=== PATIENT | female | born 2000 ===

== ENCOUNTER 2022-03-28 06:48 | Inpatient (IN) ==
[2022-03-28] MEDS ORDERED: CARBOPROST TROMETHAMINE 250 MCG/ML AMP IM PRN (07:38)
[2022-03-28] MEDS ORDERED: OXYTOCIN/LR 20 UNIT/1,000 ML BAG IV ONE ×3 (07:38→10:18)
[2022-03-28] MEDS ORDERED: CITRIC ACID/SODIUM CITRATE 30 ML UDCUP PO ONE (07:38)
[2022-03-28] MEDS ORDERED: METHYLERGONOVINE 0.2 MG/1 ML AMP IM PRN (07:38)
[2022-03-28] MEDS ORDERED: miSOPROStoL 200 MCG TABLET RECTAL PRN (07:38)
[2022-03-28] MEDS ORDERED: FAMOTIDINE 20 MG/2 ML VIAL IV ONE (07:38)
[2022-03-28] MEDS ORDERED: TRANEXAMIC ACID 1,000 MG in SODIUM CHLORIDE 0.9% 100 ML IV PRN (07:38)
[2022-03-28] MEDS ORDERED: OXYTOCIN/LR 30 UNIT/1,000 ML BAG IV ONE (07:42)
[2022-03-28] MEDS ORDERED: OXYTOCIN 10 UNIT/ML VIAL IM ONE (07:43)
[2022-03-28] MEDS ORDERED: ceFAZolin 3,000 MG in SYRINGE 1 EACH IV ONE (08:00)
[2022-03-28] MEDS ORDERED: LACTATED RINGERS 1,000 ML IV SCH ×2 (08:00→10:30)
[2022-03-28 08:06] LABS: Basophils % 0.2 % (0.0-0.8); Eosinophils % 0.6 % (0.00-10.9); Hematocrit 31.8 VOL% (35.7-47.0); Hemoglobin 10.4 GM/DL (12.0-16.0); Immature Granulocytes % 0.3 %; Immature Granulocytes Absolute 0.02 #; Lymphocytes # 1.8 10*3/uL (1.4-4.0); Mean Corpuscular HGB Conc 32.7 GM/DL (32-36); Mean Corpuscular Volume 82.8 FL (87-102); Mean Platelet Volume 9.5 FL (9.6-12.0); Monocytes # 0.4 10*3/uL (0.11-0.8); Monocytes % 5.9 % (1.7-12.7); Platelet Count 451 T/CUMM (130-400); Red Blood Count 3.84 MC/CUMM (3.8-5.5); Red Cell Distribution Width 14.1 % (9.3-17.3); White Blood Count 6.6 T/CUMM (4-12)
[2022-03-28] MEDS ORDERED: TRANEXAMIC ACID 1,000 MG/10 ML VIAL ONE (08:17)
[2022-03-28] MEDS ORDERED: SODIUM CHLORIDE 0.9% 0 ML IV ONE (08:17)
[2022-03-28] MEDS ORDERED: miSOPROStoL 200 MCG TABLET ONE (08:17)
[2022-03-28] MEDS ORDERED: METHYLERGONOVINE 0.2 MG/1 ML AMP ONE (08:18)
[2022-03-28] MEDS ORDERED: CARBOPROST TROMETHAMINE 250 MCG/ML AMP IM ONE (08:18)
[2022-03-28 08:27] LABS: Alanine Aminotransferase 24 U/L (13-56); Albumin 2.4 G/DL (3.4-5.0); Alkaline Phosphatase 154 U/L (45-117); Aspartate Amino Transferase 34 U/L (0-37); Bilirubin,Total < 0.39 MG/DL (0.20-1.00); Blood Urea Nitrogen 13 MG/DL (7-18); Calcium 8.7 MG/DL (8.5-10.1); Carbon Dioxide 21 MMOL/L (21-32); Chloride 111 MMOL/L (98-107); Glucose 125 MG/DL (74-106); Osmolality,Calculated 281.3 MOS/KG (273-304); Potassium 3.7 MMOL/L (3.5-5.1); Sodium 141 MMOL/L (136-145); Total Protein 6.8 G/DL (6.4-8.2)
[2022-03-28] MEDS ORDERED: buprenorphine HCL 0.3 MG/ML VIAL ONE (09:32)
[2022-03-28] MEDS ORDERED: ONDANSETRON 4 MG/2 ML VIAL ONE (09:33)
[2022-03-28] MEDS ORDERED: ACETAMINOPHEN INJ 1,000 MG/100 ML VIAL IV ONE (09:33)
[2022-03-28] MEDS ORDERED: PHENYLEPHRINE 1 MG/10 ML SYRINGE IV ONE (09:33)
[2022-03-28] MEDS ORDERED: KETOROLAC 30 MG/1 ML VIAL ONE (09:33)
[2022-03-28] MEDS ORDERED: DEXAMETHASONE 4 MG/1 ML VIAL ONE (09:33)
[2022-03-28] MEDS ORDERED: BUPIVACAINE SPINAL 0.75% 2 ML AMP SPINAL ONE (09:33)
[2022-03-28 10:00] LABS: Cord Venous Blood HCO3 22.1 MMOL/L; Cord Venous Blood PCO2 43.9 MMHG; Cord Venous Blood PO2 39.9
[2022-03-28 10:00] LABS: Bilirubin,Urine Negative (Negative); Blood, Urine Negative (Negative); Glucose,Urine (UA) Negative (Negative); Ketones,Urine Negative (Negative); Mucus,Urine Occasional /LPF (Occasional); Nitrite,Urine Negative (Negative); Protein,Urine 100 mg/dL (Negative); RBC,Urine 1 /HPF (0-4); Squamous Epithelial Cell,Urine Occasional /HPF (0-10); Urine Appearance CLEAR (Clear); Urine Color Yellow (Yellow)
[2022-03-28] MEDS ORDERED: IBUPROFEN 800 MG TABLET PO PRN (10:18)
[2022-03-28] MEDS ORDERED: ONDANSETRON 4 MG/2 ML VIAL IV PRN (10:18)
[2022-03-28] MEDS ORDERED: SIMETHICONE CHEW 80 MG TABLET PO PRN (10:18)
[2022-03-28] MEDS ORDERED: MAGNESIUM HYDROXIDE SUSP 30 ML UDCUP PO PRN (10:18)
[2022-03-28] MEDS ORDERED: RHO(D) IMMUNE GLOBULIN 300 MCG SYRINGE IM ONE (10:18)
[2022-03-28] MEDS ORDERED: ACETAMINOPHEN 325 MG TABLET PO PRN (10:18)
[2022-03-28] MEDS: KETOROLAC 30 MG/1 ML VIAL IV SCH ×2 (15:22→21:30)
[2022-03-28] MEDS: ACETAMINOPHEN 500 MG TABLET PO SCH ×2 (15:23→21:30)
[2022-03-28] MEDS ORDERED: ACETAMINOPHEN 500 MG TABLET PO PRN (15:30)
[2022-03-28 17:39] LABS: Basophils % 0.1 % (0.0-0.8); Hematocrit 29.7 VOL% (35.7-47.0); Hemoglobin 9.7 GM/DL (12.0-16.0); Immature Granulocytes % 0.5 %; Immature Granulocytes Absolute 0.07 #; Lymphocytes # 1.3 10*3/uL (1.4-4.0); Lymphocytes % 9.9 % (21.3-54.2); Mean Corpuscular HGB Conc 32.7 GM/DL (32-36); Mean Corpuscular Volume 81.1 FL (87-102); Mean Platelet Volume 9.6 FL (9.6-12.0); Monocytes # 0.3 10*3/uL (0.11-0.8); Monocytes % 1.9 % (1.7-12.7); Neutrophils % 87.6 % (38.7-73.9); Platelet Count 451 T/CUMM (130-400); Red Blood Count 3.66 MC/CUMM (3.8-5.5); Red Cell Distribution Width 13.9 % (9.3-17.3); White Blood Count 13.3 T/CUMM (4-12)
[2022-03-28] MEDS: DOCUSATE SODIUM 100 MG CAPSULE PO SCH (22:06)
[2022-03-29] MEDS: KETOROLAC 30 MG/1 ML VIAL IV SCH ×2 (03:33→08:44)
[2022-03-29] MEDS: ACETAMINOPHEN 500 MG TABLET PO SCH ×2 (03:33→08:43)
[2022-03-29 06:15] LABS: Basophils % 0.1 % (0.0-0.8); Eosinophils % 0.1 % (0.00-10.9); Hematocrit 24.5 VOL% (35.7-47.0); Hemoglobin 7.9 GM/DL (12.0-16.0); Immature Granulocytes % 0.4 %; Immature Granulocytes Absolute 0.03 #; Lymphocytes # 2.5 10*3/uL (1.4-4.0); Lymphocytes % 30.3 % (21.3-54.2); Mean Corpuscular HGB Conc 32.2 GM/DL (32-36); Mean Corpuscular Volume 83.3 FL (87-102); Mean Platelet Volume 9.7 FL (9.6-12.0); Monocytes # 0.5 10*3/uL (0.11-0.8); Monocytes % 5.5 % (1.7-12.7); Neutrophils % 63.6 % (38.7-73.9); Platelet Count 370 T/CUMM (130-400); Red Blood Count 2.94 MC/CUMM (3.8-5.5); Red Cell Distribution Width 14.1 % (9.3-17.3); White Blood Count 8.3 T/CUMM (4-12)
[2022-03-29] MEDS: DOCUSATE SODIUM 100 MG CAPSULE PO SCH ×2 (08:44→22:26)
[2022-03-29] MEDS: MULTIVITAMIN (PRENATAL) TABLET PO SCH (08:44)
[2022-03-29] MEDS: METOCLOPRAMIDE 10 MG TABLET PO SCH ×2 (08:44→18:50)
[2022-03-29] MEDS ORDERED: METOCLOPRAMIDE 10 MG TABLET PO SCH (09:00)
[2022-03-29] MEDS ORDERED: FERROUS SULFATE 325 MG TABLET PO SCH (09:00)
[2022-03-29] MEDS ORDERED: SODIUM CHLORIDE 0.9% 1,000 ML IV PRN (10:33)
[2022-03-29 19:59] LABS: Hematocrit 29.9 VOL% (35.7-47.0); Hemoglobin 9.9 GM/DL (12.0-16.0)
[2022-03-29] MEDS: FERROUS SULFATE 325 MG TABLET PO SCH (22:25)
[2022-03-30] MEDS ORDERED: METOCLOPRAMIDE 10 MG TABLET PO SCH (09:00)
[2022-03-30] MEDS ORDERED: INFLUENZA VIRUS VACCINE 0.5 ML SYRINGE IM ONE ×2 (09:26→11:00)
[2022-03-30] MEDS: DOCUSATE SODIUM 100 MG CAPSULE PO SCH (10:06)
[2022-03-30] MEDS: FERROUS SULFATE 325 MG TABLET PO SCH (10:07)
[2022-03-30] MEDS: MULTIVITAMIN (PRENATAL) TABLET PO SCH (10:07)
[2022-03-30 10:37] VITALS: BP 143/89
== END 2022-03-30 12:45 | disposition home or self-care (01) | DRG 540 ==
LOC: N.LD 06:48 → N.OB 13:27
PROVIDERS: ADMIT Obstetrics & Gynecology; ATTEND Obstetrics & Gynecology
PROC: LDCSECT (ICD-10-PCS; 2022-03-28 09:00)